=== PATIENT | female | born 1965 | race American Indian/Alaskan Native ===

== ENCOUNTER 2020-07-11 08:30 | Emergency (ER) | payer BC, OTHER ==
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
[2020-07-11] MEDS ORDERED: Ondansetron 4 MG/2 ML SDV IVPUSH ONE (09:01)
[2020-07-11] MEDS ORDERED: Sodium Chloride 0.9% 10 ML Syringe FLUSH ONE (09:10)
[2020-07-11] MEDS ORDERED: Iopamidol 612 MG/ML 100 ML Bottle IV SCH (09:15)
[2020-07-11] MEDS ORDERED: Sodium Chloride 0.9% 100 ML IV SCH (09:15)
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
== END 2020-07-11 10:35 | disposition home or self-care (01) ==
LOC: JP.ED 08:30
DX: S20.212A Contusion of left front wall of thorax, initial encounter (principal); I48.91 Unspecified atrial fibrillation; I45.6 Pre-excitation syndrome; Z88.6 Allergy status to analgesic agent; Z91.030 Bee allergy status; Z91.048 Other nonmedicinal substance allergy status; V50.5XXA Driver of pick-up truck or van injured in collision with pedestrian or animal in traffic accident, initial encounter
CPT/HCPCS: 36415; 71260; 71260-26; 80048; 85027; 96374; 99283; 99285-25; J2405; Q9967